=== PATIENT | female | born 1950 | race Caucasian/White ===

== ENCOUNTER 2017-02-28 05:50 | Day surgery (SDC) | payer MEDICARE ==
[2017-02-27 09:24] VITALS: BMI 52.4
--- NOTE | 2017-02-28 10:59 | OP ---
DATE OF PROCEDURE: 02/28/2017 SURGEON: Gris Beaver M.D. TITLE OF PROCEDURE: Esophagogastroduodenoscopy with biopsy. PREOPERATIVE DIAGNOSIS: Unexplained anemia. POSTOPERATIVE DIAGNOSES: 1. Examination to second portion of duodenum. 2. A few erosions in the distal esophagus, not biopsied. 3. Mild patchy erythema, nonerosive, in the body of the stomach, not biopsied. 4. Grossly normal appearing duodenum, biopsied for histology. 5. No evidence of ulcer or active bleeding. PROCEDURE IN DETAIL: Written informed consent was obtained. The patient was brought to the endoscop y suite. Total intravenous anesthesia was administered by [facility]. The patie nt was placed in the left lateral decubitus position. A bite block was inserted into the mouth. A P [employer]ax video diagnostic gastroscope was introduced into the oral cavity and the esophagus was easily i ntubated. The gastroscope was advanced under direct visualization to the second portion of the duode num. Endoscopic findings revealed a few small scattered erosions in the distal esophagus that were n ot bleeding. No ulcer was seen. No hiatal hernia was identified. No biopsies were obtained. The s tomach was then entered and carefully examined. This included a retroflexed view of the cardia and f undus. Mild nonerosive patchy erythema was noted in the gastric body. No ulcer was seen. The retro flexed view of the stomach appeared normal. The duodenum from the bulb to the second portion was the n inspected and appeared grossly normal. There was no evidence of ulcer, active bleeding or vascular ectasia. Biopsies were obtained in the proximal duodenum for histology given the patient's history of anemia. Due to anesthesia circumstances with some coughing and patient awakening toward the latte r half of the procedure, no further biopsies were obtained and the stomach was decompressed as the en doscope was completely removed from the patient. She was then repositioned for the colonoscopy. RECOMMENDATIONS: 1. Await biopsy results. 2. Ask the patient to call me in 1 week for biopsy results. 3. Use Pepcid or Zantac 1 daily as needed for reflux or indigestion. 4. Proceed with colonoscopy.
--- NOTE | 2017-02-28 11:05 | OP ---
DATE OF PROCEDURE: 02/28/2017 SURGEON: Gris Beaver M.D. TITLE OF PROCEDURE: Colonoscopy with snare polypectomy. PREOPERATIVE DIAGNOSES: 1. Anemia. 2. History of right colectomy for large serrated polyp. 3. History of colonoscopy 3 years ago with a suboptimal bowel preparation. POSTOPERATIVE DIAGNOSES: 1. Exam to ileocolonic anastomosis. 2. Suboptimal bowel preparation with a large amount of brown opaque fecal liquid throughout the colo n, especially in the transverse and descending colon. 3. Small 5 mm polyp in the descending colon, removed by cold snare technique. 4. Small internal hemorrhoids. 5. No evidence of active bleeding or mass. 6. Exam somewhat limited due to the suboptimal bowel preparation. 7. Intact appearing ileocolonic anastomosis without ulcer or evidence of mass. 8. Otherwise normal colonoscopy. PROCEDURE IN DETAIL: Written informed consent was obtained. Upon completion of the EGD, the patient was repositioned for the colonoscopy. Total intravenous anesthesia was provided by Dr[facility]. The digital rectal exam was performed that was unremarkable. A [employer] video colonos cope was inserted through the anal canal and advanced under direct visualization to the ileocolonic a nastomosis. Due to the suboptimal quality of the bowel preparation, visualization of the anastomosis was somewhat limited. It did appear intact without evidence of ulcer, bleeding or friability. No m ass was seen. The colon was carefully examined as the colonoscope was withdrawn from the anastomosis . In the descending colon, a 5 mm semi-pedunculated polyp was identified and removed by cold snare t echnique. Good hemostasis was verified post-polypectomy. The tissue was retrieved for pathology. N o other synchronous polyps were identified. In the rectum, a retroflexed view demonstrated small int ernal hemorrhoids that were not actively bleeding. The colon was decompressed as the colonoscope was removed from the patient. She was transferred to the day stay surgery area for post-procedure monit oring. There were no immediate complications. RECOMMENDATIONS: 1. Await pathology results. 2. Ask the patient to call me in 1 week for pathology results. 3. [facility] up [facility] in 1 month. 4. We will likely recommend repeating colonoscopy in 3-5 years pending review of pathology results. 5. Resume previous ADA diet. 6. Resume previous medications.
[2017-02-28] MEDS ORDERED: Lidocaine 1% PF 5 ML VIAL ONE (15:15)
[2017-02-28] MEDS ORDERED: Propofol 200 MG/20 ML VIAL ONE (15:15)
== END 2017-02-28 10:14 | disposition home or self-care (01) ==
LOC: SDC 05:50
PROVIDERS: ATTEND Internal Medicine Gastroenterology
PROC: 0DBM8ZX Excision of Descending Colon, Via Natural or Artificial Opening Endoscopic, Diagnostic (ICD-10-PCS; principal; 2017-02-28)
PROC: 0DB98ZX Excision of Duodenum, Via Natural or Artificial Opening Endoscopic, Diagnostic (ICD-10-PCS; 2017-02-28)
DX: D12.4 Benign neoplasm of descending colon (principal); D50.9 Iron deficiency anemia, unspecified; K64.8 Other hemorrhoids; G47.30 Sleep apnea, unspecified; E78.00 Pure hypercholesterolemia, unspecified; E11.9 Type 2 diabetes mellitus without complications; E66.9 Obesity, unspecified; M06.9 Rheumatoid arthritis, unspecified; Z68.43 Body mass index [BMI] 50.0-59.9, adult; Z79.4 Long term (current) use of insulin; Z79.52 Long term (current) use of systemic steroids; Z79.899 Other long term (current) drug therapy; Z99.89 Dependence on other enabling machines and devices; Z88.0 Allergy status to penicillin; Z88.8 Allergy status to other drugs, medicaments and biological substances; Z88.1 Allergy status to other antibiotic agents; Z88.2 Allergy status to sulfonamides; Z98.49 Cataract extraction status, unspecified eye; Z96.611 Presence of right artificial shoulder joint; Z90.710 Acquired absence of both cervix and uterus; Z90.49 Acquired absence of other specified parts of digestive tract; Z98.890 Other specified postprocedural states; Z85.038 Personal history of other malignant neoplasm of large intestine
CPT/HCPCS: 36416; 88305; J2001; J2704

== ENCOUNTER 2020-02-15 13:56 | Emergency (ER) | payer MEDICARE | END 2020-02-15 15:07 | disposition left against medical advice (07) | LOC: ERS 13:56 | DX: Z53.21 Procedure and treatment not carried out due to patient leaving prior to being seen by health care provider (principal) ==